=== PATIENT | male | born 1960 | race Caucasian/White ===

== ENCOUNTER 2020-05-19 12:07 | Emergency (ER) | payer OTHER ==
[~2020-05-19] VITALS: Ht 180.3 cm; Wt 83.9 kg
[~2020-05-19 12:07] MED LIST: ACETAMINOPHEN500 M1 PO; BAYER CHEWABLE81 MG PO; CENTRUM MEN'S1 EACH PO; CYCLOBENZAPRINE10 MG PO; HYDROCHLOROTH12.5 M1 PO; IBUPROFEN800 MG PO; OMEPRAZOLE20 M1 PO; PROPRANOLOL HCL20 MG PO; ZOLOFT100 MG PO
[2020-05-19 12:23] VITALS: Ht 180.3 cm; Wt 83.9 kg
[2020-05-19 13:16] LABS: BASOPHILS 0.5 % (0-2); EOSINOPHILS 2.6 % (0-7); HEMATOCRIT 39.1 % (42.0-54.0); HEMOGLOBIN 12.9 g/dL (13.5-17.5); IMMATURE GRANULOCYTES 0.2 % (0-5); LYMPHOCYTES 24.3 % (15-50); MCH 31.8 pg (26.0-34.0); MCV 96.3 fL (80.0-100.0); MEAN PLATELET VOLUME 10.5 fL (7.4-10.4); MONOCYTES 6.8 % (2-11); NEUTROPHILS 65.6 % (40-80); PLATELET COUNT 235 10x3/uL (130-400); RBC 4.06 10x6/uL (4.20-6.10); RDW 13.9 % (11.5-14.5); WBC 8.4 10x3/uL (4.8-10.8)
[2020-05-19 13:33] LABS: ANION GAP 12.5 mmol/L (8-16); CALCIUM 8.7 mg/dL (8.5-10.1); CARBON DIOXIDE 22.6 mmol/L (21.0-32.0); CREATININE - SERUM 1.3 mg/dL (0.6-1.3); POTASSIUM - SERUM 4.1 mmol/L (3.5-5.1)
[2020-05-19 13:39] LABS: ALBUMIN 4.1 g/dL (3.4-5.0); BILIRUBIN - TOTAL 0.79 mg/dL (0.2-1.3)
[2020-05-19 13:40] LABS: APTT 29.4 SECONDS (22.8-39.4); D-DIMER-QUANTITATIVE 0.6 ug/mLFEU (0.20-0.54); INR 0.99 (0.85-1.17); PROTIME 13.1 SECONDS (11.6-15.0)
[2020-05-19 15:50] VITALS: BP 146/96
== END 2020-05-19 15:50 | disposition home or self-care (01) ==
LOC: D.ER 12:07
PROVIDERS: Family Medicine
DX: S89.91XA Unspecified injury of right lower leg, initial encounter (principal); M25.561 Pain in right knee; I10 Essential (primary) hypertension; K21.9 Gastro-esophageal reflux disease without esophagitis; Z72.0 Tobacco use